=== PATIENT | female | born 1985 | race Caucasian/White ===

== ENCOUNTER 2017-03-08 18:20 | Inpatient (IN) | payer BC, OTHER ==
[~2017-03-08 18:20] MED LIST: DEXTROSE 5%-LACTATED RINGERS 1,000 ML IV SCH
[2017-03-08] MEDS ORDERED: MAGNESIUM 4GM/H20 - 100 ML IVPB SCH (19:45)
[2017-03-08 20:01] LABS: BASOPHIL 0.6 % (0-2.0); EOSINOPHIL 0.3 % (0-4.5); MCH 26.7 pg (25.7-33.7); MCHC 33.3 g/dl (32.0-36.0); MEAN CELL VOLUME 80.2 fl (80-96); MEAN PLT VOLUME 10.8 fl (7.5-11.1); NEUTROPHILS 65.7 % (42.8-82.8); PLATELET COUNT 130 K/MM3 (134-434); RDW 14.5 % (11.6-15.6); WHITE BLOOD COUNT 7.7 K/mm3 (4.0-10.0)
[2017-03-08] MEDS ORDERED: MAGNESIUM SULFATE 20GM/500ML - 500 ML IVPB SCH (20:15)
[2017-03-08 20:39] LABS: ANION GAP 8 (8-16); CALCIUM 8.1 mg/dL (8.5-10.1); CO2 22 mmol/L (21-32); CREATININE 0.7 mg/dL (0.55-1.02); GLUCOSE,RANDOM 65 mg/dL (74-106); SGPT/ALT 20 U/L (12-78)
[2017-03-08 20:40] LABS: URIC ACID 6.8 mg/dL (2.6-7.2)
[2017-03-08] MEDS ORDERED: DINOPROSTONE 10 MG VAGINAL SUPPOSITORY VG ONE (20:45)
[2017-03-08 20:46] LABS: INR 0.89 (0.82-1.09); PROTHROMBIN TIME (PATIENT) 10.1 SEC (9.98-11.88)
[2017-03-08 20:48] LABS: ACTIVATED PTT 29.6 SECONDS (26.9-34.4)
--- NOTE | 2017-03-08 21:32 | HP ---
Past Medical History - Primary Care Physician PCP:: Eula Bryant - Admission Chief Complaint: 32yo P1 @ 38wks with sever PEC History of Present Illness: Polydactily on Anatomy US this History Source: Patient Limitations to Obtaining History: No Limitations - Past Medical History ...: 2 ...Para: 1 ...Term: 1 ...LMP: 06/16/16 ...EDC by Dates: 03/21/17 ...EDC by Sono: 03/22/17 Infectious Disease: Yes: Other (Travel to early in , declined Zyka testing) - Past Surgical History Hx Myomectomy: No Hx Transabdominal Cerclage: No Additional Surgical History: Breaast augmentation - Smoking History Smoking history: Never smoked Have you smoked in the past 12 months: No Aproximately how many cigarettes per day: 0 - Alcohol/Substance Use Hx Alcohol Use: No Home Medications - Allergies Allergies/Adverse Reactions: Allergies Allergy/AdvReac Type Severity Reaction Status Date / Time No Known Allergies Allergy Verified 08/24/15 12:50 - Home Medications Home Medications: Ambulatory Orders Ibuprofen [Motrin -] 600 mg PO Q6H PRN #18 tablet 08/24/15 Review of Systems - Review of Systems Constitutional: reports: No Symptoms Eyes: reports: No Symptoms HENT: reports: No Symptoms Neck: reports: No Symptoms Cardiovascular: reports: No Symptoms Respiratory: reports: No Symptoms Gastrointestinal: reports: No Symptoms Genitourinary: reports: No Symptoms Breasts: reports: No Symptoms Reported Musculoskeletal: reports: No Symptoms Integumentary: reports: No Symptoms Neurological: reports: No Symptoms Endocrine: reports: No Symptoms Hematology/Lymphatic: reports: No Symptoms Psychiatric: reports: No Symptoms Physical Exam - Maternity Constitutional: Yes: Well Nourished Eyes: Yes: WNL HENT: Yes: WNL Neck: Yes: WNL Cardiovascular: Yes: WNL Lungs: Clear to auscultation Breast(s): Yes: WNL - Abdominal Exam/OB Fundal Height: 36 Number of Fetuses: Single Presentation: Vertex Contractions: No Monitor Mode: External Heart Rate (range): 120 Heart Rate Location: Midline Category: I Accelerations: Uniform Decelerations: None - Vaginal Exam/OB Vaginal Bleediing: No Speculum Exam: No Dilatation (cm): 1 Effacement (%): long Amniotic Membrane Status: Intact Presentation: Vertex/Position Station: -3 - Physical Exam Musculoskeletal: Yes: WNL Extremities: Yes: WNL Edema: Yes Integumentary: Yes: WNL Deep Tendon Reflex Grade: Normal +2 ...Motor Strength: WNL Psychiatric: Yes: WNL - Labs Lab Results: CBC, BMP 03/08/17 19:35 03/08/17 19:35 Assessment/Plan 32yo P1 @ 38wks with sever preeclampsia Admit to L&D IV fluids, repeat PEC labs Start MgSo4 for seizure prophylaxis, julien to monitor output current maternal and status is reassuring will start IOL with Cervidil The risks of uterine tachysystole, distress, uterine rupture, need for emergency C/S, hemorrhage, infection, scarring, etc. were discussed. We also discussed the risks of meconium aspiration and shoulder dystocia, as well as MgSo4 toxicity
[2017-03-08 22:16] VITALS: BMI 31.1
[2017-03-09] MEDS ORDERED: ACETAMINOPHEN 500 MG TABLET (FP) PO ONE (02:30)
--- NOTE | 2017-03-09 07:34 | PN ---
Progress Note, Labor Vaginal Exam #1 Labor Exam Date: 03/09/17 Labor Exam Time: 07:30 Heart Rate (range): 110 Dilatation: 1-2 Effacement (%): 50% Amniotic Membrane Status: Intact Presentation: Vertex/Position Station: -3 Remarks: 32yo P1 @ 38.1 wks with sever PEC on MgSo4 denies SOB, mild QUINTERO now Excellent UO Cervical exam still unfavorable Cytotec 25mcg placed in posterior fornix @ 7:45 am for further cervical ripening Fetus Category 1 Patient has no signs of MgSo4 toxicity will follow labs overall MF status reassuring
[2017-03-09] MEDS: MISOPROSTOL 100 MCG TABLET PV SCH ×2 (07:45→19:15)
[2017-03-09 08:22] LABS: MAGNESIUM 6.3 mg/dL (1.8-2.4); SGOT/AST 21 U/L (15-37); SGPT/ALT 18 U/L (12-78); URIC ACID 8.1 mg/dL (2.6-7.2)
[2017-03-09] MEDS ORDERED: TUBERCULIN PPD 5 TU/0.1ML SYRINGE (IN PATIENT USE ONLY) ID ONE (09:00)
[2017-03-09 09:13] LABS: MCH 26.5 pg (25.7-33.7); MCHC 32.9 g/dl (32.0-36.0); MEAN CELL VOLUME 80.6 fl (80-96); MEAN PLT VOLUME 10.7 fl (7.5-11.1); PLATELET COUNT 127 K/MM3 (134-434); RDW 14.7 % (11.6-15.6); WHITE BLOOD COUNT 7.3 K/mm3 (4.0-10.0)
[2017-03-09] MEDS ORDERED: MAGNESIUM SULFATE 20GM/500ML - 500 ML IVPB SCH (09:45)
[2017-03-09] MEDS ORDERED: FENTANYL/BUPIVACAINE/NS/PF - PCEA - 50 ML DISP.SYRIN EP SCH (11:30)
--- NOTE | 2017-03-09 12:25 | PN ---
Progress Note, Labor Vaginal Exam #2 Labor Exam Date: 03/09/17 Labor Exam Time: 12:00 Heart Rate (range): 110 Dilatation: 2-3 Effacement (%): 50 Amniotic Membrane Status: Intact Presentation: Vertex/Position Station: -3 Remarks: 32yo P1 @ 38.1 with sever preeclampsia, stable on mgSo4 No signs of toxicity s/p Cytotec 25mcg cervix slightly more favorable will start Pitocin and request early epidural Plan to [facility] when regular ctx
[2017-03-09] MEDS ORDERED: OXYTOCIN 15 UNITS/ LR 250 ML 250 ML IVPB SCH (12:30)
[2017-03-09] MEDS: D5W-LR W/ 20 UNITS OXYTOCIN 1,000 ML IV SCH (18:50)
--- NOTE | 2017-03-09 19:00 | PN ---
Delivery - Delivery Vaginal Delivery: No Problems, Spontaneous Type of Anesthesia: Epidural Episiotomy/Laceration: None EBL (cc): 400 Delivery, Single - Stages of Labor Date 1st Stage Initiatied: 03/09/17 Time 1st Stage Initiated: 04:00 Date 2nd Stage Initiated: 03/09/17 Time 2nd Stage Initiated: 18:10 Date of Delivery: 03/09/17 Time of Delivery: 18:33 Time Placenta Delivered: 18:40 - Condition of Charting Clerk/Shoe Planner Present: No Infant Gender: Male Position: Left, OA Total Hours ROM (Hrs/Mins): 2h40m - 1 Minute Total Score: 9 5 Minutes Total Score: 9 - Feeding Plan Initial Plan: Elected not to breastfeed exclusively throughout hospitalization Remarks - Remarks Remarks: 32yo P1 @ 39.6wks with sever PEC s/p IOL uncomplicated VD of head and shoulders will continue MgSo4 for 12 hrs
[2017-03-09] MEDS ORDERED: BENZOCAINE 28 GM HEMORRHOIDAL OINTMENT TP PRN (19:02)
[2017-03-09] MEDS ORDERED: WITCH HAZEL 50% (TUCKS) 40 PAD/JAR PAD TP PRN (19:02)
[2017-03-09] MEDS ORDERED: BISACODYL 10 MG SUPP.RECT RC PRN (19:02)
[2017-03-09] MEDS ORDERED: BENZOCAINE 20% 57 GM BOTTLE TP PRN (19:02)
[2017-03-09] MEDS ORDERED: MAGNESIUM SULFATE 20GM/500ML - 500 ML IV SCH (19:15)
[2017-03-09 20:49] LABS: MCH 26.7 pg (25.7-33.7); MCHC 32.9 g/dl (32.0-36.0); MEAN CELL VOLUME 81.2 fl (80-96); MEAN PLT VOLUME 10.9 fl (7.5-11.1); PLATELET COUNT 135 K/MM3 (134-434); RDW 14.6 % (11.6-15.6); WHITE BLOOD COUNT 17.7 K/mm3 (4.0-10.0)
[2017-03-09 21:11] LABS: URIC ACID 7.4 mg/dL (2.6-7.2)
[2017-03-09 21:54] LABS: PLATELET COMMENT2 NO CLOTTING DETECTED; PLATELET COMMENT3 FEW LARGE PLTS; PLATELET ESTIMATE SLT DECREASED (NORMAL)
[2017-03-09] MEDS: FERROUS SO4 325 MG TABLET (FP) PO SCH (23:00)
[2017-03-10] MEDS: DEXTROSE 5%-LACTATED RINGERS 1,000 ML IV SCH (02:00)
[2017-03-10] MEDS: D5W-LR W/ 20 UNITS OXYTOCIN 1,000 ML IV SCH (02:00)
[2017-03-10] MEDS: IBUPROFEN 600 MG TABLET (FP) PO PRN ×2 (02:11→07:15)
[2017-03-10] MEDS: ACETAMINOPHEN 325 MG TABLET (FP) PO PRN ×2 (02:11→07:15)
[2017-03-10 08:31] LABS: BASOPHIL 0.2 % (0-2.0); EOSINOPHIL 0.1 % (0-4.5); MCH 26.4 pg (25.7-33.7); MCHC 32.4 g/dl (32.0-36.0); MEAN CELL VOLUME 81.3 fl (80-96); MEAN PLT VOLUME 10.3 fl (7.5-11.1); NEUTROPHILS 81.6 % (42.8-82.8); PLATELET COUNT 117 K/MM3 (134-434); RDW 14.7 % (11.6-15.6)
--- NOTE | 2017-03-10 08:57 | PN ---
Post Progress Note - Subjective Subjective: No complaints, no QUINTERO, abdominal pain, blurry vision, scotoma Post Day: 1 Type of Delivery: Vital Signs: Vital Signs Temperature 97.9 F 03/10/17 08:00 Pulse Rate 61 03/10/17 08:00 Respiratory Rate 18 03/10/17 08:00 Blood Pressure 155/103 03/10/17 08:00 O2 Sat by Pulse Oximetry (%) 100 03/09/17 20:00 Breast Exam: Yes: Soft Uterus: Yes: Fundus Firm Abdomen/GI: Yes: Abdomen soft Lochia: Yes: Rubra Lochia, amount: Small Extremities: Yes: Calves non-tender Activity: Ambulating - Labs Labs: CBC WBC 15.0 K/mm3 (4.0-10.0) H 03/10/17 08:02 RBC 3.35 M/mm3 (3.60-5.2) L 03/10/17 08:02 Hgb 8.8 GM/dL (10.7-15.3) L 03/10/17 08:02 Hct 27.3 % (32.4-45.2) L 03/10/17 08:02 MCV 81.3 fl (80-96) 03/10/17 08:02 MCH 26.4 pg (25.7-33.7) 03/10/17 08:02 MCHC 32.4 g/dl (32.0-36.0) 03/10/17 08:02 RDW 14.7 % (11.6-15.6) 03/10/17 08:02 Plt Count 117 K/MM3 (134-434) L 03/10/17 08:02 MPV 10.3 fl (7.5-11.1) 03/10/17 08:02 Neutrophils % 81.6 % (42.8-82.8) D 03/10/17 08:02 Lymphocytes % 12.3 % (8-40) D 03/10/17 08:02 Monocytes % 5.8 % (3.8-10.2) 03/10/17 08:02 Eosinophils % 0.1 % (0-4.5) 03/10/17 08:02 Basophils % 0.2 % (0-2.0) 03/10/17 08:02 Platelet Estimate Slt decreased (NORMAL) 03/09/17 20:00 Platelet Comment No clumping noted 03/09/17 20:00 Platelet Comment No clotting detected 03/09/17 20:00 Retic Count 3.26 % (0.5-1.5) H 03/09/17 20:00 Haptoglobin 62 mg/dL (34-200) 03/09/17 07:45 Assessment/Plan 32yo P2 s/p soing well cliniclly. Preeclampsia-- pt is asymptomatic. Magnesium was stopped. Plan to start Procardia for BP >140/90CBC pending from this AM. Plan to monitor BP, labs -- continue routine care. Breast feeding discussed.
[2017-03-10] MEDS: FERROUS SO4 325 MG TABLET (FP) PO SCH ×2 (10:34→21:07)
[2017-03-10] MEDS: PRENATAL VITAMINS W/ FOLIC ACID TABLET (FP) PO SCH (10:35)
[2017-03-10] MEDS: NIFEdipine E.R. 30 MG TABLET (FP) PO SCH (10:35)
[2017-03-10] MEDS ORDERED: SENNOSIDES/DOCUSATE COMBO (SENNA PLUS) TABLET (UD) PO PRN (22:00)
[2017-03-11 08:48] LABS: BASOPHIL 0.3 % (0-2.0); EOSINOPHIL 0.2 % (0-4.5); MCH 26.3 pg (25.7-33.7); MCHC 32.5 g/dl (32.0-36.0); MEAN CELL VOLUME 80.9 fl (80-96); MEAN PLT VOLUME 10.4 fl (7.5-11.1); NEUTROPHILS 78.4 % (42.8-82.8); PLATELET COUNT 130 K/MM3 (134-434); RDW 15.2 % (11.6-15.6); WHITE BLOOD COUNT 11.3 K/mm3 (4.0-10.0)
[2017-03-11] MEDS: DEXTROSE 5%-LACTATED RINGERS 1,000 ML IV SCH (09:53)
[2017-03-11] MEDS: FERROUS SO4 325 MG TABLET (FP) PO SCH (09:55)
[2017-03-11] MEDS: NIFEdipine E.R. 30 MG TABLET (FP) PO SCH (09:55)
[2017-03-11] MEDS: PRENATAL VITAMINS W/ FOLIC ACID TABLET (FP) PO SCH (09:55)
--- NOTE | 2017-03-11 10:06 | PN ---
Post Progress Note - Subjective Subjective: Patient without acute complaints. Denies headache, change in vision, right upper quadrant pain. Reports tolerating oral intake without nausea or vomiting. Ambulating without dizziness. Denies fevers or chills. Pain well controlled with oral pain medication. without difficulty. Passing flatus. Post Day: 2 Type of Delivery: Vital Signs: Vital Signs Temperature 97.8 F 03/10/17 20:40 Pulse Rate 76 03/11/17 06:00 Respiratory Rate 18 03/11/17 06:00 Blood Pressure 119/67 03/11/17 06:00 O2 Sat by Pulse Oximetry (%) 100 03/09/17 20:00 Breast Exam: Yes: Engorged Uterus: Yes: Fundus Firm Abdomen/GI: Yes: Abdomen soft, Passing flatus, Tolerating PO. No: Tender Lochia: Yes: Serosa Lochia, amount: Small Extremities: Yes: Calves non-tender. No: Edema Activity: Ambulating - Labs Labs: CBC WBC 11.3 K/mm3 (4.0-10.0) H 03/11/17 07:00 RBC 3.19 M/mm3 (3.60-5.2) L 03/11/17 07:00 Hgb 8.4 GM/dL (10.7-15.3) L 03/11/17 07:00 Hct 25.8 % (32.4-45.2) L 03/11/17 07:00 MCV 80.9 fl (80-96) 03/11/17 07:00 MCH 26.3 pg (25.7-33.7) 03/11/17 07:00 MCHC 32.5 g/dl (32.0-36.0) 03/11/17 07:00 RDW 15.2 % (11.6-15.6) 03/11/17 07:00 Plt Count 130 K/MM3 (134-434) L 03/11/17 07:00 MPV 10.4 fl (7.5-11.1) 03/11/17 07:00 Neutrophils % 78.4 % (42.8-82.8) 03/11/17 07:00 Lymphocytes % 15.1 % (8-40) D 03/11/17 07:00 Monocytes % 6.0 % (3.8-10.2) 03/11/17 07:00 Eosinophils % 0.2 % (0-4.5) D 03/11/17 07:00 Basophils % 0.3 % (0-2.0) 03/11/17 07:00 Platelet Estimate Slt decreased (NORMAL) 03/09/17 20:00 Platelet Comment No clumping noted 03/09/17 20:00 Platelet Comment No clotting detected 03/09/17 20:00 Retic Count 3.26 % (0.5-1.5) H 03/09/17 20:00 Haptoglobin 62 mg/dL (34-200) 03/09/17 07:45 Assessment/Plan 32 yo PPD # 2 s/p , s/p magnesium for PEC, doing well 1. Patient BP stable, without signs / symptoms of PEC. Patient stable for discharge home today. 2. Patient encouraged to contact MD for: - Severe pain not controlled by oral pain medication - Fevers or chills - Nausea or vomiting, intolerance of oral intake 3. Patient to follow up in office in 1-2 weeks for BP check, 4-6 weeks for visit
--- NOTE | 2017-03-11 10:08 | DS ---
Physical Exam-SHAREPOINT CONSULTANT Vital Signs: Vital Signs Temperature 97.8 F 03/10/17 20:40 Pulse Rate 76 03/11/17 06:00 Respiratory Rate 18 03/11/17 06:00 Blood Pressure 119/67 03/11/17 06:00 O2 Sat by Pulse Oximetry (%) 100 03/09/17 20:00 Labs: CBC, BMP 03/11/17 07:00 03/08/17 19:35 Delivery - Delivery Vaginal Delivery: No Problems, Spontaneous Type of Anesthesia: Epidural Episiotomy/Laceration: None EBL (cc): 400 Delivery, Single - Stages of Labor Date 1st Stage Initiatied: 03/09/17 Time 1st Stage Initiated: 04:00 Date 2nd Stage Initiated: 03/09/17 Time 2nd Stage Initiated: 18:10 Date of Delivery: 03/09/17 Time of Delivery: 18:33 Time Placenta Delivered: 18:40 - Condition of Track Rider/Modern Languages Professor Present: No Infant Gender: Male Weight: 6 lb 13 oz Position: Left, OA Total Hours ROM (Hrs/Mins): 2h40m - 1 Minute Total Score: 9 5 Minutes Total Score: 9 - Feeding Plan Initial Plan: Elected not to breastfeed exclusively throughout hospitalization Discharge Summary Reason For Visit: INDUCTION OF LABOR Current Active Problems Preeclampsia (Acute) Procedures: Principal: vaginal delivery Hospital Course: Patient admitted for IOL for severe PEC, was started on magnesium for seizure prophylaxis. Underwent uncomplicated She remained afebrile, vital signs stable Noted to have asymptomatic anemia PPD # 1 Stable for discharge home PPD #2 Condition: Good - Instructions Diet, Activity, Other Instructions: Physical activity Resume your normal everyday activity as tolerated no heavy lifting or exercise until seen by your surgeon. You may walk unlimited fouzia of and climb stairs. You may resume driving the car when you feel safe and comfortable behind the wheel. No sexual activity as instructed. Wound care If you have a bandage, leave it on, and keep dry for 48-72 hours. After that time discard the outer bandage. If they are tapes on the skin under the out of bandage leave them in place. They will peel off in the next 7 to 10 days. Do Not Peel them off. You may shower the day after surgery. If there are tapes present on the skin, you may shower over them. Diet There are no dietary restrictions. Eat healthy, high-fiber foods. Drink 6 to 8 glasses of liquid each day. This will assist in keeping your bowels are regular. Pain management You may take Tylenol or acetaminophen or Ibuprofen (for example, Motrin, Advil etc.) from my pain prescription medication is ordered should be taken as prescribed for moderate to severe pain. Call MD for any of the following: Severe pain not relieved by medication Fever of 101 or higher Excessive bleeding or drainage on dressing Inability to urinate Headache, change in vision, right upper quadrant pain Referrals: Eula Bryant MD [Staff Physician] - Disposition: HOME - Home Medications Comprehensive Discharge Medication List: Ambulatory Orders Ibuprofen [Motrin -] 600 mg PO Q6H PRN #18 tablet 08/24/15 Nifedipine ER [Procardia Xl -] 30 mg PO DAILY #30 tab.er.24 03/10/17
[2017-03-11 10:51] VITALS: BP 116/68; PULSE 91; TEMP 98.9
--- NOTE | 2017-03-12 17:07 | PATH ---
Surgical Pathology Report Patient Name: TYLER ALBERTO Med. Rec. #: [id number] /Age/Gender: 1985 (Age: 32) / F Account: [id number] Location: [facility] OBS/BEVERAGE MANAGER Taken: 03/08/2017 Received: 03/10/2017 Reported: 03/12/2017 Physicians: Eula Bryant M.D. Specimen(s) Received PLACENTA AND TISSUE SAMPLE CORD Clinical History , 38 weeks with PIH Polydactyly, parvo-nonimmune, recent travel to the [facility] refused ZIKA testing History of dengue fever 10/20 Final Diagnosis PLACENTA, DELIVERY: 433 g THIRD TRIMESTER PLACENTA WITH TRIVASCULAR UMBILICAL CORD AND UNREMARKABLE PLACENTAL MEMBRANES. Electronically Signed Piedad Hopper M.D. Gross Description The specimen is received fresh labeled "placenta and tissue" and is a 433 gram, 15.0 x 12.0 x 3.1 cm. placenta with attached membranes and umbilical cord. The attached membranes are esqueda, translucent with focal opacities and insert marginally. The attached umbilical cord measures 11 cm. in length and averages 1.3 cm. in diameter. The cord inserts eccentrically, 3 cm. to the nearest margin. No true knots or strictures are identified. Cut surface of the umbilical cord reveals 3 vessels. Also received within the same container is an additional 15 cm in length x 1.3 cm in diameter portion of unremarkable umbilical cord. The surface is costa-blue with minimal fibrin deposition and appropriate caliber vessels. The maternal surface is red-brown and intact. Sectioning reveals red-brown, spongy parenchyma. No lesions are identified. Elementary [employer] Social Worker sections are submitted in three cassettes as follows: 1- membrane rolls and umbilical cord; 2-3- full thickness sections of placenta. 03/11/201703/11/2017
== END 2017-03-11 16:45 | disposition home or self-care (01) | DRG 774 ==
LOC: JLDR 18:20 → J3W 03-10 09:46
PROVIDERS: ADMIT Obstetrics & Gynecology; ATTEND Obstetrics & Gynecology
PROC: 10E0XZZ Delivery of Products of Conception, External Approach (ICD-10-PCS; principal; 2017-03-09)
DX: O14.13 Severe pre-eclampsia, third trimester (principal); Z3A.38 38 weeks gestation of pregnancy; Z37.0 Single live birth
CPT/HCPCS: 36415; 59409; 80048; 82977; 83010; 83735; 84450; 84460; 84550; 85025; 85027; 85044; 85610; 85730; 86593; 86850; 86900; 86901; 88307-TC